=== PATIENT | male | born 1980 | race Caucasian/White ===

== ENCOUNTER 2016-10-02 09:52 | Emergency (ER) | payer OTHER ==
[~2016-10-02] VITALS: Ht 185.4 cm; Wt 81.6 kg
[~2016-10-02 09:52] MED LIST: ABILIFY 10 MG10 MG PO; ALPRAZOLAM0.5 M2 SL; AMITRIPTYLINE H10 M1 PO; CLONAZEPAM0.5 MG PO; DIVALPROEX SOD250 M1 PO; GABAPENTIN TAB600 MG PO; HYDROXYZINE50 MG PO; LEXAPRO20 M1 PO; NEURONTIN100 MG PO; PROTONIX 40MG T40 MG PO; PROTONIX INJ40 MG PO; RISPERIDONE1 MG PO; SEROQUEL 100MG100 MG PO; SERTRALINE HYD100 MG; SERTRALINE HYD100 MG PO; SERTRALINE HYDR50 MG PO; TRAZODONE100 MG PO
--- NOTE | 2016-10-02 10:53 | ED GI/GU/ABDOMINAL COMPLAINT ---
History of Present Illness General Chief Complaint: Nausea, Vomiting, Diarrhea Stated Complaint: N/V/D X 1 WEEK Source: patient, old records Exam Limitations: no limitations Vital Signs & Intake/Output Vital Signs & Intake/Output Vital Signs Date Time Temp Pulse Resp B/P Pulse O2 O2 Flow FiO2 Ox Delivery Rate 10/02 1250 98.7 75 18 119/70 97 10/02 1017 97.8 87 20 141/90 97 Room Air Room Air Allergies Coded Allergies: No Known Allergies (10/14/15) Reconcile Medications Aripiprazole (Abilify) 10 MG TAB 1 TAB PO DAILY DEPRESSION (Reported) Dicyclomine Hydrochloride (Bentyl) 10 MG CAPSULE 1 CAP PO TID PRN pain Escitalopram Oxalate (Lexapro) 20 MG TABLET 1 TAB PO DAILY DEPRESSION ( Reported) Gabapentin (Gabapentin Tab 600MG) 600 MG TAB 1 TAB PO TID UNKNOWN (Reported) Ondansetron (Zofran Odt) 4 MG TAB.RAPDIS 1 TAB SL TID PRN nausea Pantoprazole Sodium (Protonix) 40 MG TAB 1 TAB PO BID GI (Reported) Triage Note: PT TO ED WITH C/O NAUSEA, VOMITING AND DIARRHEA SINCE LAST SATURDAY. TOOK NO MEDS FOR SYMPTOMS. WENT TO WORK YESTERDAY AND TODAY, FELT WEAK. ABLE TO TAKE WATER, CLEAR FLUIDS. Triage Nurses Notes Reviewed? yes Onset: Abrupt Duration: day(s): (6), constant Timing: recent history Quality/Severity: aching, cramping Severity Numbers: 6 Location: generalized abdomen Radiation: no radiation Activities at Onset: nvd Prior Abdominal Problems: none Modifying Factors: Worsens With: eating. Associated Symptoms: denies HPI: 36-year-old male history of alcohol abuse and peptic ulcer disease presents emergency room complaining of a 6 day history of nausea vomiting diarrhea associated crampy generalized abdominal pain that is nonradiating that comes on during his episodes of vomiting and diarrhea. He reports that he had a sick contact at work with similar symptoms last week. He has not taken anything for his symptoms. The patient states that he did have a few beers the night before the symptoms began however is never been diagnosed with pancreatitis. He denies any chest pain shortness of breath fevers however reports the chills. He is been unable to tolerate by mouth secondary to his symptoms. No history of abdominal surgeries in the past 30 other associated symptoms or modifying factors pain is cramping and aching nonradiating (BRITTNEY BAEZ) Past History Travel History Traveled to [place] past 21 day No Medical History Any Pertinent Medical History? see below for history Neurological: NONE EENT: NONE Cardiovascular: NONE Respiratory: NONE Gastrointestinal: GERD, chronic diarrhea of unknown etiology Hepatic: NONE Renal: NONE Musculoskeletal: NONE Psychiatric: depression, SUICIDE ATTEMPT AT 19 Y/O, OVERDOSE Endocrine: NONE Blood Disorders: NONE Cancer(s): NONE History of MRSA: No History of VRE: No History of CDIFF: No Surgical History Surgical History: none Psychosocial History Who do you live with Patient/Self Services at Home None What is your primary language Croatian Tobacco Use: Current Not Daily Daily Tobacco Use Amount/Type: => 5 Cigarettes daily ETOH Use: alcoholic Illicit Drug Use: benzodiazepines, (OFF OF THEM NOW) Family History Family History, If Any: MOTHER (Secondary to alcohol). FH: liver cancer FATHER CKD (chronic kidney disease) GRANDFATHER FH: stomach cancer Hx Contributory? No (BRITTNEY BAEZ) Review of Systems Review of Systems Constitutional: Reports: see HPI. All Other Systems: Reviewed and Negative Comments Review of systems: See HPI, All other systems negative. Constitutional, no chills no fever, no malaise HEENT: No visual changes no sore throat no congestion, no ear pain Cardiovascular: No chest pain , no palpitation , Skin, no jaundice no rashes, no change in skin Respiratory: No dyspnea no cough no sputum no hemoptysis GI: see hpi : No dysuria No hematuria, no frequency Muscle skeletal: No joint pain, no joint swelling, no back pain, no neck pain Neurologic: No numbness no confusion, no headache Psych: No stress. Heme/endocrine: No bruising no bleeding Immunology: No lymphadenopathy (BRITTNEY BAEZ) Physical Exam Physical Exam General Appearance: well developed/nourished, no apparent distress, alert Gastrointestinal: normal bowel sounds, soft, non-tender Comments: Well-developed well-nourished person in no acute distress HEENT: Normal EENT exam; PERRL, EOMI, HEAD is atraumatic. moist mucous membranes. Neck: Supple,normal range of motion Back: Nontender, no CVA tenderness. Full range of motion Cardiovascular: Regular rate and rhythms no murmurs rubs Respiratory: Chest nontender.There were no bony deformities, no asymmetry. No respiratory distress. Patient speaking in full complete sentences. Breath sounds clear to auscultation bilaterally: NO W/R/R Abdomen: Soft, nontender nondistended, no appreciable organomegaly. Normal bowel sounds. No rebound/guarding, No appreciable enlargement of the abdominal aorta, No ascites. Extremity: No edema, full range of motion of extremities Neuro: Alert oriented x3, motor sensory normal, There were no obvious focal neurologic abnormalities. Skin: No appreciable rash on exposed skin, skin is warm and dry. no jaundice Psych: Mood and affect is normal, memory and judgment is normal. Core Measures ACS in differential dx? No Severe Sepsis Present: No Septic Shock Present: No (CIARAN BADILLO,BRITTNEY) Progress Differential Diagnosis: appendicitis, biliary colic, bowel obstruction, colon cancer, cholecystitis, diverticulitis, gastritis, hepatitis, inflamm bowel dis, pancreatitis, peptic ulcer, PUD/GERD, perforated viscous Plan of Care: Orders Procedure Date/time Status LIPASE 10/02 1053 Complete ETHANOL 10/02 1053 Complete COMPREHENSIVE METABOLIC PANEL 10/02 1053 Complete CBC WITHOUT DIFFERENTIAL 10/02 1053 Complete AMYLASE 10/02 1053 Complete Laboratory Tests 10/02/16 1135: Anion Gap 8, Estimated GFR > 60, BUN/Creatinine Ratio 20.0, Glucose 96, Calcium 8.4, Total Bilirubin 1.3, AST 35, ALT 48, Alkaline Phosphatase 83, Total Protein 6.3, Albumin 3.6, Globulin 2.7, Albumin/Globulin Ratio 1.3, Amylase < 30 L, Lipase 42, Serum Alcohol < 10.0 10/02/16 1106: CBC w Diff NO MAN DIFF REQ, RBC 5.39, MCV 93.8, MCH 32.4 H, RDW 14.1, MPV 8.8, Gran % 81.0 H, Lymphocytes % 13.5 L, Monocytes % 4.8, Eosinophils % 0.4, Basophils % 0.3, Absolute Granulocytes 7.1 H, Absolute Lymphocytes 1.2, Absolute Monocytes 0.4, Absolute Eosinophils 0, Absolute Basophils 0, PUBS MCHC 34.5 Labs ordered old records reviewed patient medicated Pepcid 20 Zofran 4 Toradol 30 IV CAT scan ordered 10/02/2016 12:48:21 PM pending CAT scan results are discussed the patient leaves off his lab results she's had no episodes of nausea vomiting or diarrhea here in the department resting comfortably I discussed with the patient at length his CAT scan findings again he is tolerating by mouth here, he's had no further episodes of nausea vomiting and discussed the need for bland diet clear liquids advance as tolerated, advised to return anytime sooner if his symptoms worsen prescription for Zofran and Bentyl provided answered all of his questions he feels comfortable this plan cleared for discharge (CIARAN BADILLO,BRITTNEY) Diagnostic Imaging: Viewed by Me: CT Scan. Discussed w/RAD: CT Scan. Radiology Impression: PATIENT: BRITTNEY BARR PRESENT AGE: 36 PATIENT ACCOUNT NO: [id number] : 81 LOCATION: [facility] ORDERING PHYSICIAN: BRITTNEY BADILLO SERVICE DATE: 10/02/16 EXAM TYPE: CAT - CT ABD & PELVIS W IV CONTRAST EXAMINATION: CT ABDOMEN AND PELVIS WITH CONTRAST CLINICAL INFORMATION: Abdominal pain. Nausea vomiting. Rule out appendicitis. COMPARISON: None TECHNIQUE: Multidetector volumetric imaging was performed of the abdomen and pelvis before and after the IV administration of 95 L of Omnipaque 300 intravenous contrast. Sagittal and coronal reformatted images were obtained on the technologist's workstation. DLP: 392.5 mGy-cm FINDINGS: LUNG BASES: The visualized lung bases are unremarkable. LIVER, GALLBLADDER, AND BILIARY TREE: The liver is normal in size, shape, and attenuation. No focal hepatic lesion or biliary ductal dilatation is present. The gallbladder is unremarkable with no evidence of radiopaque gallstones, gallbladder wall thickening, or obvious pericholecystic inflammatory changes. PANCREAS: Pancreas is normal in size and attenuation. No ductal dilatation or inflammatory changes. No pancreatic atrophy. SPLEEN: Unremarkable. ADRENAL GLANDS: Unremarkable. KIDNEYS AND URETERS: The kidneys are normal in size, shape, and attenuation. No hydronephrosis, hydroureter, or calculi seen. No perinephric stranding. BLADDER: Unremarkable. GASTROINTESTINAL TRACT: The small and large bowel are unremarkable. The appendix is unremarkable. ABDOMINAL WALL: No significant hernia is appreciated. LYMPH NODES: Normal. VASCULAR: Unremarkable. PELVIC VISCERA: The uterus and adnexa are unremarkable. OSSEOUS STRUCTURES: Unremarkable. IMPRESSION: No acute intra-abdominal or intrapelvic abnormalities. No CT findings of pancreatitis, though serum amylase and lipase values would be more sensitive for early/mild pancreatitis.. DICTATED BY: GUANACO ROSADO MD DATE/ TIME DICTATED:10/02/161243 SALES ASSISTANT:ARLINE DATE/TIME TRANSCRIBED: 10/02/161243 CONFIDENTIAL, DO NOT COPY WITHOUT APPROPRIATE AUTHORIZATION. < Electronically signed in Other Vendor System> SIGNED BY: GUANACO ROSADO MD 10/02/16 1301 Initial ED EKG: none (BRITTNEY BAEZ) Departure Departure Time of Disposition: 1310 Disposition: HOME OR SELF CARE Condition: Stable Clinical Impression Primary Impression: Nausea & vomiting Referrals: DAMARIS TOLEDO MD (PCP/Family) Additional Instructions: Johnston diet clear liquids advance as tolerated. Zofran if needed for nausea, Bentyl as needed for pain. Follow-up with your primary care physician this week return with any concerns These prescriptions were sent to your pharmacy Departure Forms: Customer Survey General Discharge Information Prescriptions: Current Visit Scripts Ondansetron (Zofran Odt) 1 TAB SL TID PRN nausea #10 TAB Dicyclomine Hydrochloride (Bentyl) 1 CAP PO TID PRN pain #15 CAP (BRITTNEY BAEZ) PA/BLACK TOP PAVER OPERATOR Co-Sign Statement Statement: ED Attending supervision documentation- [] I saw and evaluated the patient. I have also reviewed all the pertinent lab results and diagnostic results. I agree with the findings and the plan of care as documented in the PA's/BLACK TOP PAVER OPERATOR's documentation. [x] I have reviewed the ED Record and agree with the PA's/BLACK TOP PAVER OPERATOR's documentation. [] Additions or exceptions (if any) to the PAs/BLACK TOP PAVER OPERATOR's note and plan are summarized below: [] (KATRIN BARROW DO
[2016-10-02 11:14] LABS: ABSOLUTE BASOPHIL COUNT 0 /CUMM (0.0-0.2); ABSOLUTE EOSINOPHIL COUNT 0 /CUMM (0.0-0.7); ABSOLUTE GRANULOCYTE CT 7.1 /CUMM (1.4-6.5); ABSOLUTE LYMPH COUNT 1.2 /CUMM (1.2-3.4); ABSOLUTE MONOCYTE COUNT 0.4 /CUMM (0.10-0.60); BASOPHIL % 0.3 % (0.0-2.0); EOSINOPHIL % 0.4 % (0-5); HEMATOCRIT 50.5 % (42-52); MEAN CORPUSCULAR HGB 32.4 PG (27.0-31.0); MEAN CORPUSCULAR HGB CONC 34.5 G/DL (33.0-37.0); MEAN CORPUSCULAR VOLUME 93.8 FL (80.0-94.0); MEAN PLATELET VOLUME 8.8 FL (7.4-10.4); PLATELET COUNT 112 /CUMM (130-400); RBC DISTRIBUTION WIDTH 14.1 % (11.5-14.5); RED BLOOD CELL CT 5.39 /CUMM (4.70-6.10); WHITE BLOOD CELL COUNT 8.7 /CUMM (4.8-10.8)
[2016-10-02 12:50] VITALS: BP 119/70
--- NOTE | 2016-10-02 13:01 | CT SCAN REPORT ---
EXAMINATION: CT ABDOMEN AND PELVIS WITH CONTRAST CLINICAL INFORMATION: Abdominal pain. Nausea vomiting. Rule out appendicitis. COMPARISON: None TECHNIQUE: Multidetector volumetric imaging was performed of the abdomen and pelvis before and after the IV administration of 95 L of Omnipaque 300 intravenous contrast. Sagittal and coronal reformatted images were obtained on the technologist's workstation. DLP: 392.5 mGy-cm FINDINGS: LUNG BASES: The visualized lung bases are unremarkable. LIVER, GALLBLADDER, AND BILIARY TREE: The liver is normal in size, shape, and attenuation. No focal hepatic lesion or biliary ductal dilatation is present. The gallbladder is unremarkable with no evidence of radiopaque gallstones, gallbladder wall thickening, or obvious pericholecystic inflammatory changes. PANCREAS: Pancreas is normal in size and attenuation. No ductal dilatation or inflammatory changes. No pancreatic atrophy. SPLEEN: Unremarkable. ADRENAL GLANDS: Unremarkable. KIDNEYS AND URETERS: The kidneys are normal in size, shape, and attenuation. No hydronephrosis, hydroureter, or calculi seen. No perinephric stranding. BLADDER: Unremarkable. GASTROINTESTINAL TRACT: The small and large bowel are unremarkable. The appendix is unremarkable. ABDOMINAL WALL: No significant hernia is appreciated. LYMPH NODES: Normal. VASCULAR: Unremarkable. PELVIC VISCERA: The uterus and adnexa are unremarkable. OSSEOUS STRUCTURES: Unremarkable. IMPRESSION: No acute intra-abdominal or intrapelvic abnormalities. No CT findings of pancreatitis, though serum amylase and lipase values would be more sensitive for early/mild pancreatitis..
[2016-10-02] MEDS ORDERED: BENTYL10 M1 PO (13:11)
[2016-10-02] MEDS ORDERED: ZOFRAN ODT4 M1 SL (13:11)
== END 2016-10-02 13:18 ==
LOC: ERH 09:52
PROVIDERS: Physician Assistant Medical
DX: R11.2 Nausea with vomiting, unspecified (principal); R10.84 Generalized abdominal pain; R19.7 Diarrhea, unspecified
CPT/HCPCS: 74177; 96361; 96374; 96375; G0480; J1885; J2405

== ENCOUNTER 2016-10-03 12:22 | Inpatient (IN) | payer OTHER ==
[~2016-10-03] VITALS: Ht 180.3 cm; Wt 88.5 kg
[~2016-10-03 12:22] MED LIST changes: +BENTYL10 M1 PO; +ZOFRAN ODT4 M1 SL
--- NOTE | 2016-10-03 12:52 | ED PSYCHIATRIC COMPLAINT ---
See Addendum History of Present Illness General Chief Complaint: Psychiatric Related Complaint Stated Complaint: +SI, TOOK BOTTLE OF PILLS Source: patient, family, old records Exam Limitations: no limitations Vital Signs & Intake/Output Vital Signs & Intake/Output Vital Signs Date Time Temp Pulse Resp B/P Pulse O2 O2 Flow FiO2 Ox Delivery Rate 10/03 2234 98.4 80 20 130/84 10/03 2230 97.7 80 20 130/84 98 Room Air 10/03 2010 99.1 105 18 120/72 96 Room Air 10/03 1228 99.3 126 24 137/88 ED Intake and Output 10/04 0000 10/03 1200 Intake Total 120 Output Total Balance 120 Intake, Oral 120 Allergies Coded Allergies: No Known Allergies (10/14/15) Triage Note: PER PT TOOK ALL GABAPENTIN, 2 5 MG ANBIEN AND DRANK. 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 GABAPENTIN DATED 07/04/16 PT REPORTS FULL BOTTLE. SEEN IN ED YESTERDAY FOR ABD PAIN Triage Nurses Notes Reviewed? yes Onset: Just prior to arrival Duration: hour(s):, constant, continues in ED, getting worse Timing: recent history Severity: severe Associated Symptoms: anxiety, impaired concentration, ingestion, insomnia, suicidal ideation HPI: Several days prior to admission patient has had increasing depression and insomnia anorexia. He was seen yesterday for abdominal pain with negative workup. Prior to admission his depression became worse he took Ambien and reports a bottle of gabapentin to kill himself. He denies fever chills nausea vomiting diarrhea chest pain cough shortness of breath headache dysuria rash bleeding homicidal ideation hallucination. (MAVERICK MACHUCA,SEGUNDO) Reconcile Medications Dicyclomine Hydrochloride (Bentyl) 10 MG CAPSULE 1 CAP PO TID PRN pain Gabapentin (Gabapentin Tab 600MG) 600 MG TAB 1 TAB PO TID UNKNOWN (Reported) Ondansetron (Zofran Odt) 4 MG TAB.RAPDIS 1 TAB SL TID PRN nausea (FAINA MACHUCA,ANDRES) Past History Travel History Traveled to [place] past 21 day No Medical History Any Pertinent Medical History? 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 FH: liver cancer FATHER CKD (chronic kidney disease) GRANDFATHER FH: stomach cancer Hx Contributory? No (SEGUNDO TEMPLE MD) Review of Systems Review of Systems Constitutional: Reports: no symptoms. EENTM: Reports: no symptoms. Respiratory: Reports: no symptoms. Cardiovascular: Reports: no symptoms. GI: Reports: see HPI, abdominal pain. Genitourinary: Reports: no symptoms. Musculoskeletal: Reports: no symptoms. Skin: Reports: no symptoms. Neurological/Psychological: Reports: see HPI, confusion, depressed, emotional problems. Hematologic/Endocrine: Reports: no symptoms. Immunologic/Allergic: Reports: no symptoms. All Other Systems: Reviewed and Negative (SEGUNDO TEMPLE MD) Physical Exam Physical Exam General Appearance: well developed/nourished, alert, awake, anxious, moderate distress Head: atraumatic, normal appearance Eyes: Bilateral: normal appearance, PERRL, EOMI. 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 yes 1 Age <19 or >45 years? yes 1 Depression/Hopelessness? yes 2 Previous Attempts/Psych Care yes 1 Excessive Ethanol/Drug Use? yes 1 Rational Thinking Loss? yes 2 Single//? yes 1 Organized/Serious Attempt yes 2 Stated Future Intent? yes 2 Total 13 SAD PERSONS Done? yes (SEGUNDO TEMPLE MD) Progress Differential Diagnosis: drug intoxication, drug overdose, drug withdrawal, electrolyte abnormality, hypoglycemia Plan of Care: Orders Procedure Date/time Status Regular Diet 10/03 L Active CIWA 10/03 2058 Active Continuous Observation Monitor 10/03 124 Active URINE DRUG SCREEN FOR ER ONLY 10/03 124 Complete ACETOMINOPHEN 10/03 1244 Complete SALICYLATE 10/03 1244 Complete ETHANOL 10/03 1244 Complete COMPREHENSIVE METABOLIC PANEL 10/03 1244 Complete CBC WITHOUT DIFFERENTIAL 10/03 124 Complete ED CRISIS PSYCH CONSULT 10/03 1244 Active EKG 10/03 1229 Active Current Medications Sig/Adele Start time Last Medication Dose Stop Time Status Admin Charcoal 50 GM ONCE ONE 10/03 1400 CAN 10/03 1401 Laboratory Tests 10/03/16 1310: Urine Opiates Screen < 100.00, Methadone Screen < 40, Barbiturate Screen < 60, Ur Phencyclidine Scrn < 6.00, Amphetamines Screen < 100, U Benzodiazepines Scrn < 85, Urine Cocaine Screen < 50, Urine Cannabis Screen < 5.00 10/03/16 1300: Anion Gap 17 H, Estimated GFR > 60, BUN/Creatinine Ratio 10.0, Glucose 94, Calcium 9.6, Total Bilirubin 0.9, AST 42, ALT 59, Alkaline Phosphatase 94, Total Protein 8.1, Albumin 4.7, Globulin 3.4, Albumin/Globulin Ratio 1.4, CBC w Diff NO MAN DIFF REQ, RBC 5.84, MCV 94.4 H, MCH 32.0 H, RDW 14.0, MPV 8.9, Gran % 69.4, Lymphocytes % 23.3, Monocytes % 6.3, Eosinophils % 0.4, Basophils % 0.6, Absolute Granulocytes 6.5, Absolute Lymphocytes 2.2, Absolute Monocytes 0.6, Absolute Eosinophils 0, Absolute Basophils 0.1, PUBS MCHC 33.9, Salicylates < 1.0, Acetaminophen < 10.0 L, Serum Alcohol 183.0 3:20 PM Patient signed out to me by Dr. Temple, pending crisis evaluation and disposition. (FAINA MACHUCA,ANDRES) Hand-Off Endorsed To: ANDRES EISENBERG MD Endorsed Time: 1454 Pending: consult (SEGUNDO TEMPLE MD) Hand-Off Endorsed To: FARHEEN CUEVAS MD Endorsed Time: 2300 Pending: consult (CRISIS BED PLACEMENT) (FAINA MACHUCA,ANDRES) Hand-Off Endorsed To: MATEUSZ MACHUCA,KATRIN Loya Endorsed Time: 0700 Pending: consult (MASON MACHUCA,FARHEEN Land) Departure Departure Disposition: STILL A PATIENT Condition: Stable Clinical Impression Primary Impression: Depression with suicidal ideation Secondary Impressions: Overdose Referrals: DAMARIS TOLEDO MD (PCP/Family) Departure Forms: Customer Survey General Discharge Information (MAVERICK MACHUCA,SEGUNDO)
[2016-10-03 13:12] LABS: ABSOLUTE BASOPHIL COUNT 0.1 /CUMM (0.0-0.2); ABSOLUTE EOSINOPHIL COUNT 0 /CUMM (0.0-0.7); ABSOLUTE GRANULOCYTE CT 6.5 /CUMM (1.4-6.5); ABSOLUTE LYMPH COUNT 2.2 /CUMM (1.2-3.4); ABSOLUTE MONOCYTE COUNT 0.6 /CUMM (0.10-0.60); BASOPHIL % 0.6 % (0.0-2.0); EOSINOPHIL % 0.4 % (0-5); GRANULOCYTE % 69.4 % (42.2-75.2); HEMATOCRIT 55.1 % (42-52); MEAN CORPUSCULAR HGB CONC 33.9 G/DL (33.0-37.0); MEAN CORPUSCULAR VOLUME 94.4 FL (80.0-94.0); MEAN PLATELET VOLUME 8.9 FL (7.4-10.4); PLATELET COUNT 138 /CUMM (130-400); RED BLOOD CELL CT 5.84 /CUMM (4.70-6.10); WHITE BLOOD CELL COUNT 9.3 /CUMM (4.8-10.8)
--- NOTE | 2016-10-03 22:05 | ED PSYCH CRISIS CONSULTATION ---
Crisis Consult Basic Assessment Date of Consult: 10/03/16 Responsible Person/Accompanied By: self Insurance Authorization: Insurance #1: Insurance name: HAWA BORJA Phone number: Policy number: [id number] Group number: Authorization number: ED Provider: Patient's ED Provider: SEGUNDO TEMPLE MD Primary Care Physician: Patient's PCP: DAMARIS TOLEDO MD PCP's Current Psychiatrist: none Chief Complaint: Psychiatric Related Complaint Patient's Quote: I'm fed up with everything Present Illness: DELFINA self presented at [place] ED yesterday with reports of attempted suicide by swallowing a full bottle of Gabapentin and 2 5mg ambians in addition to etoh consumption. BAL at arrival was 186(?). He has a prior hx of suicide attempt by o/d with most recent inpatient at [facility] in Sep 2015 and prior inpatient at [facility] (most recent Aug 2015) and multiple prior inpatient admissions at [facility]. He has a hx of outpatient tx at [facility] and most recently [facility]. He reports stopping tx and med management at [facility] Jul 2016. He reports increased depression and feeling hopeless due to daily ETOH abuse -10 nips plus beer nightly. He reports being overwhelmed with stress because despite working he has been unable to keep up on his bills and hasnt been able to pay his mortgage the past 7 months. He reports living alone (he is ) and doesnt do anything other than work and come home and drink by himself until he goes to bed. He reports missing work recently due to illness and that his work performance has deteriorated due to alcohol use. He continues to endorse SI. He reports giving up and stated Its not worth trying anymore. He presents as depressed, hopeless, defeated. Reports poor appetite losing 30 lbs past yr. Patient's Address: [address] [place] [address] Other Phone Number: Who Do You Live With? Patient/Self Family/Informants Interviewed: Call to Go James pt's cousin. He informed that pt does struggle with Depression and has been admitted to in psych a few times in the past. He reports that he has been increasingly deperssed lately because it was recelty his grandmother's birthday and she recently and they were close. Allergies - Coded Allergies: No Known Allergies (10/14/15) Current Medications - Scheduled Medications Gabapentin (Gabapentin Tab 600MG) 600 MG TAB 1 TAB PO TID UNKNOWN #45 ( Reported) Entered as Reported by KADE WHATLEY on 10/06/15 0800 Scheduled PRN Medications Dicyclomine Hydrochloride (Bentyl) 10 MG CAPSULE 1 CAP PO TID PRN pain #15 CAP Prescribed by BRITTNEY BAEZ on 10/02/16 Ondansetron (Zofran Odt) 4 MG TAB.RAPDIS 1 TAB SL TID PRN nausea #10 TAB Prescribed by BRITTNEY BAEZ on 10/02/16 Laboratory Results: Laboratory Tests 10/03/16 1310: Urine Opiates Screen < 100.00, Methadone Screen < 40, Barbiturate Screen < 60, Ur Phencyclidine Scrn < 6.00, Amphetamines Screen < 100, U Benzodiazepines Scrn < 85, Urine Cocaine Screen < 50, Urine Cannabis Screen < 5.00 10/03/16 1300: Anion Gap 17 H, Estimated GFR > 60, BUN/Creatinine Ratio 10.0, Glucose 94, Calcium 9.6, Total Bilirubin 0.9, AST 42, ALT 59, Alkaline Phosphatase 94, Total Protein 8.1, Albumin 4.7, Globulin 3.4, Albumin/Globulin Ratio 1.4, CBC w Diff NO MAN DIFF REQ, RBC 5.84, MCV 94.4 H, MCH 32.0 H, RDW 14.0, MPV 8.9, Gran % 69.4, Lymphocytes % 23.3, Monocytes % 6.3, Eosinophils % 0.4, Basophils % 0.6, Absolute Granulocytes 6.5, Absolute Lymphocytes 2.2, Absolute Monocytes 0.6, Absolute Eosinophils 0, Absolute Basophils 0.1, PUBS MCHC 33.9, Salicylates < 1.0, Acetaminophen < 10.0 L, Serum Alcohol 183.0 (ALYSIA DAVIS LCSW) Past History Past Medical History Neurological: NONE EENT: NONE Cardiovascular: NONE Respiratory: NONE Gastrointestinal: GERD, ESPOGEAL ULCERS chronic diarrhea of unknown etiology Hepatic: NONE Renal: NONE Musculoskeletal: NONE Psychiatric: depression, SUICIDE ATTEMPT AT 19 Y/O, OVERDOSE Endocrine: NONE Blood Disorders: NONE Cancer(s): NONE RNFA/Reproductive: NONE Past Surgical History Surgical History: 1 Psychosocial History Strengths/Capabilities: Employed/own home Supportive family Desire to feel better Physical Limitations (Interventions): None identified Psychiatric Treatment History Psych Treatment Psychiatric Treatment Yes Inpatient Treatment Yes Out[facility] for Treatment Depression/ETOH Abuse Dates of Treatment since 2014 Response to Treatment continued depression and etoh abuse Diagnosis by History: Depression, Anxiety and Alcohol Use Substance Use/Abuse History Drug Use/Abuse Substances Used/Abused Yes Substance Used/Abused Alcohol Last Used today How much used/taken 10 nips plus beer How often daily Substance Abuse Treatment Substance Abuse Treatment Past Substance Abuse TX Yes Inpatient Treatment Yes Outpatient Treatment Yes Location of Treatment [facility] Reason for Treatment Alcohol and Benzo Detox Response to Treatment stayed clean from benzos. continues daily etoh abuse Comments: pt drinking etoh daily. reports continuing to abstain from benzo and cocaine (ALYSIA DAVIS LCSW) Current Mental Status Mental Status Orientation: Person, Place, Situation Affect: Depressed Speech: WNL Neuro-vegetative: Anhedonia, Appetite Decreased, Energy Decreased, Helpless, Loss of Interest Appearance Appearance- Dress/Hygiene: hospital scrubs; groomed dietz; tatoos on both arms Behaviors Thought Process: WNL Thought Content: WNL Memory: WNL Insight: Fair SI/HI Risk Assessment Past Suicidal Ideation/Attempts Yes Current Suicidal Ideation/Att Yes Past Homicidal Ideation/Att: No Current Homicidal Ideation/Attempts No Degree of Intent: States Intent Danger To: Self Gravely Disabled: Poor Impulse Control, Poor Judgment Risk Factors: high anxiety/distress, history of suicide atmpts, SA/MH hospitalized, substance abuse, isolate/no social support, lives alone, male Lethality Ratin ED Management Sitter: Yes Restraints: No (ALYSIA DAVIS LCSW) DSM5/PS Stressors/Medical Prob Diagnosis' (DSM 5, Stressors, Medical): Major Depressive D/O recurrent (F33.2) Alcohol Use severe (F10.20) financial mortgage recent illness chronic GI problems Current GAF: 25 Comments: pt rports stopped taking medications and stopped tx at [facility] in July. Increased depression/stress regarding inability to pay mortgage/bills and maintain consistent work performance. feels he is letting self and family down. (ALYSIA DAVIS LCSW) Departure Disposition Psych Medical Clearance Date: 10/03/16 Medically Cleared at: 2000 Time Started: 2004 Time Ended: 2044 Psychiatrist Consulted: Keshawn Purcell MD Date Disposition Established: 10/03/16 Time Disposition Established: 2099 Plan for Disposition - Modality: Bed Search Rationale for Disposition: Pt depressed. Suicidal. Attempted O/d today. Needs inpatient admission. Referrals TRE MACHUCA,DAMARIS (PCP/Family) (ALYSIA DAVIS LCSW) Disposition Psych Medical Clearance Date: 10/04/16 Date Disposition Established: 10/04/16 Time Disposition Established: 2009 Plan for Disposition - Modality: Inpatient Psychiatry Facility: [facility] Follow-up Appt Date: 10/04/16 Rationale for Disposition: +SI, increased depression, alcohol dependence Type of IP Admission: Voluntary (GIORGI SPAULDING LCSW) Addendum Addendum Crisis re-evaluated pt today. He remains depressed with suicidal thoughts. Case reviewed with Dr. Cormier of Psychiatry and bed search continues. (ASHLI BOTELLO LCSW) Addendum Patient to be admitted to [facility] this evening. Patient signed voluntary form and is willing to go to [facility]. (GIORGI SPAULDING LCSW)
[2016-10-03 22:35] VITALS: BP 130/84
[2016-10-04 08:52] VITALS: BP 130/70
--- NOTE | 2016-10-04 12:12 | ED PSYCHIATRIST/APRN CONSULT ---
Psychiatrist/SINGER BACK TENDER ED Consult Assessment and Plan: Patient seen at 11:37 a.m. Here after intentional overdose with #2 Ambien and # 90 Neurontin. Needs inpatient psychiatric care. Full note to follow. I have ordered an alcohol detox protocol.
[2016-10-04 16:50] LABS: ABSOLUTE BASOPHIL COUNT 0 /CUMM (0.0-0.2); ABSOLUTE EOSINOPHIL COUNT 0.1 /CUMM (0.0-0.7); ABSOLUTE GRANULOCYTE CT 4.8 /CUMM (1.4-6.5); ABSOLUTE LYMPH COUNT 2.1 /CUMM (1.2-3.4); ABSOLUTE MONOCYTE COUNT 0.5 /CUMM (0.10-0.60); BASOPHIL % 0.5 % (0.0-2.0); EOSINOPHIL % 1.7 % (0-5); GRANULOCYTE % 63.6 % (42.2-75.2); HEMATOCRIT 51.3 % (42-52); MEAN CORPUSCULAR HGB 31.9 PG (27.0-31.0); MEAN CORPUSCULAR HGB CONC 33.7 G/DL (33.0-37.0); MEAN CORPUSCULAR VOLUME 94.5 FL (80.0-94.0); MEAN PLATELET VOLUME 8.9 FL (7.4-10.4); PLATELET COUNT 127 /CUMM (130-400); RBC DISTRIBUTION WIDTH 13.7 % (11.5-14.5); RED BLOOD CELL CT 5.43 /CUMM (4.70-6.10); WHITE BLOOD CELL COUNT 7.6 /CUMM (4.8-10.8)
--- NOTE | 2016-10-04 19:42 | ED PSYCHIATRIST/APRN CONSULT ---
Psychiatrist/DELIVERY AGENT ED Consult Assessment and Plan: dining service worker's note reviewed. Patient seen at 11:37 a.m. The patient is a 36 yo DWM who presented s/p intentional overdose with #2 Ambien 5 or 10 mg tabs and #90 Neurontin 300 mg in the context of drinking "a lot of whiskey," 500 ml. States that he texted a female friend to take care of his dog "in case [he didn' t] make it." This raised her suspicions, which led to her bringing him to the emergency room. Reports stressors as having been out of work for a while due to a drinking binge. States "my whole life is a mess. 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 States that he has been depressed for 20 years. Past psychiatric hx: Stopped going to [facility] about 2 months ago. Reports he was inpatient on [facility] last year. Stopped medications in 08/03 because he couldn't focus at work. Reports this was his second suicide attempt. The first was in 2014 whe he took a pill overdose with alcohol. Substance abuse hx: Tobacco at 1 ppd. Alcohol 500 ml (10 nips) of whiskey + 2 beer/day. Denies cannabis. Was using cocaine daily until ~6 weeks ago, then decreased use to 1x/ weekend. Denies opiates. Rx: melatonin 10 mg qhs prn, Bentyl, Zofran for nausea. Past tx with Lexapro, Abilify, gabapentin. Found gabapentin helpful for anxiety. NKA. PMH: Hx esophagitis/esophageal ulcers. Tonsillectomy in childhood. Hx left hand surgery and right ankle sprain. Family psychiatric and substance abuse hx: Mother, depression, on Lexapro. MGF depression. Substance use: "everybody." MGF attempted suicide. Social hx: Lives alone in [place]. Parents are in [place]. Has a brother in [place] and a sister in [place]. Has a son, age 8, who lives with his mother in [place]. Sees son on occasion. HS graduate. 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 Had a couple of DUIs in his 20s. Mental status examination: WM in blue scrubs, bearded, lying in bed. Calm, polite and cooperative. No psychomotor agitation/retardation. Speech normal in volume, rate and tone. Affect calm, good range. Mood: "a little better" since receiving Bentyl and Ativan. Sad 04/28. Anxiety 12/26. Feels hopeless, helpless, worthless and guilty. Reports SI+racing thoughts. Gives a safety promise for here. Reports HI (jokingly) toward a female peer in the ER who talks incessantly. Denies actual HI. Denies AH, VH, PI and magical reyna. There is no apparent thought d/o or delusions. Insight and judgment are poor. Ox3. Reports he got hardly any sleep last night. Sleep at home was disrupted due to alcohol use. Appetite : not good lately, for the past few months. He reports he lost a lot of weight, unquantified. Energy: "pretty low." IMPRESSION: Major depression, recurrent, severe. Alcohol use disorder. Patient is here after an intentional overdose. He will need inpatient psychiatric care. I have ordered an alcohol detox protocol.
--- NOTE | 2016-10-04 19:52 | IP CRISIS DIAG ASSESS PSYCH ---
Diagnostic Assessment Basic Assessment Insurance Authorization: Insurance #1: Insurance name: HAWA BORJA Phone number: Policy number: [id number] Group number: Authorization number: Pended Authorization # Client Authorization # Type of Request [id number] INITIAL Date of Admission/ Start of Services Requested From Submission Date 10/04/2016 10/04/2016 10/04/2016 Primary Care Physician: Patient's PCP: DAMARIS TOLEDO MD PCP's Patient's Quote: I'm fed up with everything Present Illness: Re Connor Weiss, RESIDENTIAL HOUSEKEEPER on 10/03/16: DELFINA self presented at [place] ED yesterday with reports of attempted suicide by swallowing a full bottle of Gabapentin and 2 5mg ambians in addition to etoh consumption. BAL at arrival was 186(?). He has a prior hx of suicide attempt by o/d with most recent inpatient at [facility] in Sep 2015 and prior inpatient at [facility] (most recent Aug 2015) and multiple prior inpatient admissions at [facility]. He has a hx of outpatient tx at [facility], [place] and most recently [facility]. He reports stopping tx and med management at [facility] Jul 2016. He reports increased depression and feeling hopeless due to daily ETOH abuse -10 nips plus beer nightly. He reports being overwhelmed with stress because despite working he has been unable to keep up on his bills and hasnt been able to pay his mortgage the past 7 months. He reports living alone (he is ) and doesnt do anything other than work and come home and drink by himself until he goes to bed. He reports missing work recently due to illness and that his work performance has deteriorated due to alcohol use. He continues to endorse SI. He reports giving up and stated Its not worth trying anymore. He presents as depressed, hopeless, defeated. Reports poor appetite losing 30 lbs past yr. Patient's Address: [address] [place] [address] Other Phone Number: Who Do You Live With? Patient/Self Feel Safe Where You Live? Yes Feel Safe in Your Relationship Yes Marital Status: single Do You Have Children? No Primary Language? Israeli Language(s) Spoken At Home: Israeli Family/Informants Interviewed: Call to Go James pt's cousin. He informed that pt does struggle with Depression and has been admitted to in psych a few times in the past. He reports that he has been increasingly deperssed lately because it was recelty his grandmother's birthday and she recently and they were close. Allergies - Coded Allergies: No Known Allergies (10/14/15) Current Medications - Scheduled Medications Gabapentin (Gabapentin Tab 600MG) 600 MG TAB 1 TAB PO TID UNKNOWN #45 ( Reported) Entered as Reported by KADE WHATLEY on 10/06/15 0800 Scheduled PRN Medications Dicyclomine Hydrochloride (Bentyl) 10 MG CAPSULE 1 CAP PO TID PRN pain #15 CAP Prescribed by BRITTNEY BAEZ on 10/02/16 Ondansetron (Zofran Odt) 4 MG TAB.RAPDIS 1 TAB SL TID PRN nausea #10 TAB Prescribed by BRITTNEY BAEZ on 10/02/16 Past History Past Surgical History Surgical History TONSILS,L HAND Abuse/Trauma History Trauma History/Current Trauma: Denies History of Trauma/Abuse Treatment? No Legal History Current Legal Status: none Have you ever been arrested? Yes Number of Arrests: [address] Dates: none Fitness Director none Psychosocial History Strengths/Capabilities: Employed/own home Supportive family Desire to feel better Physical Limitations (Interventions): None identified Psychiatric Treatment History Psych Treatment Psychiatric Treatment Yes Inpatient Treatment Yes Outpatient Treatment Yes Location of Treatment [facility], [facility] Reason for Treatment Depression/ETOH Abuse Dates of Treatment since 2014 Response to Treatment continued depression and etoh abuse Diagnosis by History: Depression, Anxiety and Alcohol Use Risk Factors: high anxiety/distress, history of suicide atmpts, SA/MH hospitalized, substance abuse, isolate/no social support, lives alone, male Substance Use/Abuse History Drug Use/Abuse minimum 12mo Hx Substances Used/Abused Yes Substance Used/Abused Alcohol Last Used today How much used/taken 10 nips plus beer How often daily Substance Abuse Treatment Substance Abuse Treatment Past Substance Abuse TX Yes Inpatient Treatment Yes Outpatient Treatment Yes Location of Treatment [facility] Reason for Treatment Alcohol and Benzo Detox Response to Treatment stayed clean from benzos. continues daily etoh abuse Sexual History Sexually Active Yes Sexual Orientation Heterosexual Education History Highest Level of Education: high school/GED Preferred Learning Style: visual, auditory, experiential Current Mental Status Mental Status Orientation: Person, Place, Situation Affect: Depressed Speech: WNL Neuro-vegetative: Anhedonia, Appetite Decreased, Energy Decreased, Helpless, Loss of Interest Appearance Appearance- Dress/Hygiene: hospital scrubs; groomed dietz; tatoos on both arms Behaviors Thought Process: WNL Thought Content: WNL Memory: WNL Insight: Fair SI/HI Risk Assessment - Minimum 6mo History- Past Suicidal Ideation/Attempts Yes Current Suicidal Ideation/Att Yes Past Homicidal Ideation/Att: No Current Homicidal Ideation/Attempts No Degree of Intent: States Intent Danger To: Self Gravely Disabled: Poor Impulse Control, Poor Judgment Risk Factors: high anxiety/distress, history of suicide atmpts, SA/MH hospitalized, substance abuse, isolate/no social support, lives alone, male Lethality Ratin Needs/Init TX Plan/Goals: 1) Monitor for safety 2) Develop coping skills 3) Med management 4) Arrange family meeting while in hospital AUDIT-C Questionnaire: AUDIT-C Questionnaire: Response Value ETOH use in the past year 4 or more per week 4 # drinks typical/day 10 or more 4 6 or > drinks per occasion Daily/Almost Daily 4 Total 12 DSM5/PS Stressors/Medical Prob Diagnosis' (DSM 5, Stressors, Medical): Major Depressive D/O recurrent (F33.2) Alcohol Use severe (F10.20) financial mortgage recent illness chronic GI problems Current GAF: 25 Comments: pt rports stopped taking medications and stopped tx at [facility] in July. Increased depression/stress regarding inability to pay mortgage/bills and maintain consistent work performance. feels he is letting self and family down.
--- NOTE | 2016-10-04 20:34 | SOCIAL WORKER SOCIAL HX PSYCH ---
Social History Basic Assessment Insurance Authorization: Insurance #1: Insurance name: [employer] Phone number: Policy number: [id number] Group number: Authorization number: Curr Source of Income/Entitlements: employment Primary Care Physician: Patient's PCP: DAMARIS TOLEDO MD PCP's Present Problem: The patient is a 36 year old, male presenting to the ED, after an intentional overdose on Gabapentin and Ambien, with the intention to take his life. The patient presents with depressed mood with flat affect and had good participation in the evaluation. He reports his symptoms as follows; depressed mood, anxiety, feeling helpless, feeling hopeless, with sleep and appetite disturbances. He reports that this is his second suicide attempt and that previously he was admitted to [facility]. He is not currently in any outpatient treatment, for his substance abuse or mental health issues. He has been drinking daily and has been using Cocaine on the weekends. He states that "realistically," he does not want to stop drinking at this time. His last period of sobriety was 1 year ago. 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 He states that he has multiple stressors and has not been able to catch up with finances, since being laid off from his last job (1 year ago). He has one son (8 years old), who resides with his mother in [place], noting he occasionally sees him. He is not currently in a relationship with anyone, however is attracted to females and is currently sexually active. He denies any current or history of HI / AH / VH. He denies any history of trauma or abuse. He would like to be admitted to an inpatient unit at this time. Primary Language? Russian Language(s) Spoken At Home: Russian Living Situation Other Living Arrangement: Live in his own home Residential Care/Treatment Fac N/A Feel Safe Where You Are Living Yes Feel Safe in Relationships? No (Denies being in a relationship) Comments: N/A Allergies - Coded Allergies: No Known Allergies (10/14/15) Current Medications - Scheduled Medications Gabapentin (Gabapentin Tab 600MG) 600 MG TAB 1 TAB PO TID UNKNOWN #45 ( Reported) Entered as Reported by KADE WHATLEY on 10/06/15 0800 Scheduled PRN Medications Dicyclomine Hydrochloride (Bentyl) 10 MG CAPSULE 1 CAP PO TID PRN pain #15 CAP Prescribed by BRITTNEY BAEZ on 10/02/16 Ondansetron (Zofran Odt) 4 MG TAB.RAPDIS 1 TAB SL TID PRN nausea #10 TAB Prescribed by BRITTNEY BAEZ on 10/02/16 Consequences of Psych Med Use: N/A Comments: N/A Past History Past Medical History Neurological: NONE EENT: NONE Cardiovascular: NONE Respiratory: NONE Gastrointestinal: GERD, ESPOGEAL ULCERS chronic diarrhea of unknown etiology Hepatic: NONE Renal: NONE Musculoskeletal: NONE Psychiatric: depression, SUICIDE ATTEMPT AT 19 Y/O, OVERDOSE Endocrine: NONE Blood Disorders: NONE Cancer(s): NONE 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 Childhood Family Constellation: Father, mother, 1 brother and 1 sister Primary Childhood Caretakers: father, mother Family Life During Childhood: "it was good, I had a normal childhood." DCF Involvement? No Mother's Age (Current/): 62 Relationship w/Mother: "Good" Father's Age (Current/): 61 Relationship w/Father: "good" Any Sibling(s)? Yes Sibling's Gender(s)/Age(s): male Sibling 1:, female Sibling 2: Relationship w/Sibling(s): "very good, but they are spread across the [facility]." he states that his brother lives in [place] and his sister lives in [place]. Relationship w/Friends: "Good, but they are drinking buddies." Family Psych/Sub Abuse/Add Hx: Unknown Other Comments: N/A Abuse/Trauma History Trauma History/Current Trauma: Denies Abuse/Trauma Treatment: N/A Legal History Legal Guardian/Address/Phone: Self Current Legal Status: none Pending Court Dates: Patient denies Have you ever been arrested Yes Number of Arrests: 3 Hx of Juvenile Legal Charges? Yes If Yes: Arrested for Marijuana Hx of Adult Legal Charges? 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 Weaknesses: The patient has chronic substance abuse issues and has had very little sobriety. Physical Limitations (Interventions): None identified Last Physical: uknown History of Seizures? No History of Blackouts? Yes Last Blackout: "Last " ADL Limitations: None noted [place]/Social/Peer Relations The patient states that he does have some friends, however states "most of them are drinking buddies." Meaningful Activities: The patient states that he likes Hiking, fishing and mountain biking. Childhood Gnosticism: no anabaptism stated Current Yazdanism Affiliation: no anabaptism stated Is Spirituality Important to You? "No" Cultural/Ethnic Issues: None noted Are There Developmental Issues? 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 Treatment of Prior Episodes: The patient states that he was admitted to [facility] Diagnosis: By hx: Depression, Anxiety and Alcohol Use Psychodynamic Issues: N/A Risk Factors: high anxiety/distress, history of suicide atmpts, SA/MH hospitalized, substance abuse, isolate/no social support, lives alone, male Substance Use/Abuse History Drug Use/Abuse 1 Substance Used/Abused Alcohol First Use 14 years old Last Used yesterday: 10/03/2016 How much used/taken 4-5 nips and a couple of beers, however notes an increase lately How often "Daily" For how long 1 year Route of use oral Drug Use/Abuse 2 Substance Used/Abused Cocaine First Use 16 years old Last Used "Last weekend" How much used/taken "1 gram" How often "every weekend" For how long unclear Route of use unknown Have Had Periods of Sobriety? No Explain: The patient reports very little sobriety, noting he has not been sober for at least the last year. He did note being sober for 1 month about a year ago. Relapse History? Yes Explain: The patient notes that he does not want to stop drinking. Have You Ever Attended AA? Yes Do You Attend AA Currently? No Do You Have a Sponsor? No Other Community Resources Used: None noted Symptoms of Use: N/A Substance Abuse Treatment Substance Abuse Treatment Inpatient Treatment Yes Outpatient Treatment Yes Location of Treatment [facility] Reason for Treatment Alcohol and Benzo Detox Response to Treatment The patient continues to drink daily Comments: N/A Sexual History Sexually Active Yes Sexual Orientation Heterosexual Sexual Concerns: None noted Education History Highest Level of Education: high school/GED Highest Grade Completed: 12 grade Vocational Year Completed: N/A Number of College Years: 0 College Degree/Major: N/A Other Degree(s): N/A Preferred Learning Style: ukkameronwn HX of Learning Difficulties: None reported Barriers to Learning: None reported Special Communication Needs: None reported Employment History Employment Employed Not in Labor Force: N/A 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 No If Yes, Explain: N/A Type of Discharge: N/A Date of Discharge: N/A Current Mental Status Mental Status Orientation: Person, Place, Situation Affect: Depressed Speech: WNL Neuro-vegetative: Anhedonia, Appetite Decreased, Energy Decreased, Helpless, Loss of Interest, Feeling hopeless Appearance Appearance- Dress/Hygiene: The patient was sitting on the bed, in hospital attier and was neat clean well kempt. He had visible tattoos on both of his arms. He had good eye contact and participation in the evaluation. Behaviors Thought Process: WNL Thought Content: WNL Memory: WNL Insight: Fair SI/HI Risk Assessment Past Suicidal Ideation/Attempts Yes (2 attempts) Current Suicidal Ideation/Att Yes (" I don't know how I feel") Past Homicidal Ideation/Att: No Current Homicidal Ideation/Attempts No Degree of Intent: States Intent, The patient presented to the ED after an intentional overdose of Gabapentin and Ambien, in a suicide attempt. Danger To: Self Gravely Disabled: Poor Impulse Control, Poor Judgment Risk Factors: High Anxiety/Distress, SA/MH Hospitalization(s), Hx of suicide attempt(s), Lives alone, Male, Poor impulse control, Substance Abuse Lethality Ratin - Conclusion and Recommendations for treatment - and discharge planning Summary: The patient presented to the ED after a suicide attempt, in which he took an overdose of pills while drinking alcohol. He reports feeling depressed, anxious, feeling helpless, feeling hopeless and has had sleep and appetite disturbances. He would like help with his mental health issues, however does not want to stop driking at this time.
[2016-10-04] MEDS ORDERED: MELATONIN10 M4 PO (20:58)
[2016-10-04] MEDS ORDERED: NEURONTIN600 M1 PO (20:59)
[2016-10-04] MEDS ORDERED: LEXAPRO20 M1 PO (21:00)
[2016-10-04] MEDS ORDERED: ABILIFY10 M1 PO (21:00)
[2016-10-05] VITALS (13 sets, daily range): BP systolic 107–140; BP diastolic 66–89
--- NOTE | 2016-10-05 14:42 | SOCIAL WORKER PROG NOTE PSYCH ---
Social Work Progress Note Progress Note SW met with patient for the first time today since admission to the unit. Patient reports +SI today with no plan or intent while in the hospital. Patient reports that he would rather be than alive and has no will to live at present. Patient reports that at this time he is unsure if he wants to abstain from alcohol although knows that he should. Patient reports that when he is under the influence he acts impulsively and recklessly. Patient reports that he is depresed over his drinking but also drinks because of his depression. Patient is fearful that he may lose his current job. Patients uncle is his boss and he is considering inviting his uncle in for a family meeting. His uncle is aware that he is here but patient believes his uncle is more concerned with him returning to work and filling his schedule. It may be beneficial to have uncle come in for family meeting in order to educate him on patients mental illness/ severity of his suicide attempt/ alcohol dependence. Patients parents reside in [place] and patient reports that last time he was at they were "way too involved". It does not appear he wants them involved in his treatment this time. I mentioned the possibility of seeking rehab post discharge from the hospital and patiend reported that he does not want to go to rehab. Patient is hesitant right now about aftercare plan and stated that he is fearful of discharging the hospital.
--- NOTE | 2016-10-05 14:44 | SOCIAL WORKER TX PLAN PSYCH ---
Treatment Plan - Please Document: - Evidence that there is ongoing collaboration between - the patient and the interdisciplinary team, - including the patient's active participation and - responsibility for engaging in the treatment regimen, - and that the treatment plan is individualized and - relevant to the patient's conditions. - Treatment plan should reflect documentation indicating - that all active therapeutic efforts are included. Strengths/Capabilities: The patient has good insight into his need for treatment and is motivated to attend. Physical Limitations (Interventions): None identified Patient Identified Trmt Goals: " I want to be less depressed and do better." Discharge Plan: IOP Problem/Goals #1 Problem #1: suicidal ideation Goal (Short Term): Today I will attend 2 groups Today I will identify 2 stressors Today I will identify 2 positive supports Today I will work on recognizing 3 emotions I am feeling Goal (Intermediate): Be free of suicidal thoughts/attempts Develop 3 coping skills to deal with depression Identify 3 positive support systems to call in crisis Develop a crisis plan with 3 miller people Identify 2 positive traits per week about myself Identify 2 things I have to look forward to Identify 2 positive people in my life and 1 thing I appreciate about them Interventions: Learn ways to manage depressive symptoms accordingly and identify positive supports to manage life stressors and mood fluctuations. Modalities: Encourage groups, education on depression, provide CBT treatment, family meeting. Problem/Goals #2 Problem #2: alcohol dependence/abuse Goal (Short Term): 1) Refrain from alcohol use 2) Identify 3 triggers for use 3) Identify 3 sober supports 4) Identify 3 coping skills Goal (Intermediate): I will have family meeting on unit during my hospitalization I will attend all AA groups on unit I will arrange aftercare for discharge I will Identify 3 coping skills for cravings to use I will attend all AA meetings on the unit I will set up aftercare for dual diagnosis program to address both mental health and substance abuse concerns Interventions: Learn ways to manage cravings to use substances accordingly and identify coping skills to prevent relapse from occurring due to anxious/depressed feelings. Modalities: Encourage groups, education on addiction, provide CBT treatment, family meeting. DSM5/PS Stressors/Medical Prob Diagnosis' (DSM 5, Stressors, Medical): Major Depressive D/O recurrent (F33.2) Alcohol Use severe (F10.20) financial mortgage recent illness chronic GI problems Current GAF: 25 Treatment Team - Responsibilities of members of the treatment team include: - Medication Management- or [facility] SOCIAL WORKER - Medication Administration and Monitoring- Nurse - Group Therapy- Occupational Therapist - 1:1 Therapy,Disch Planning,family involvement-Electrician Outside
--- NOTE | 2016-10-05 16:22 | CPS MD/APRN INITIAL ASSE PSYCH ---
Psychiatric Admission Manager Motor's Note Reviewed: Yes Patient Seen and Examined: Yes Identifying Information: 36-year-old white male Chief Complaint: "I tried to kill myself. It was impulsive. I had racing thoughts of suicide which haven't gone away. Reaction to Hospitalization: Calm and cooperative History of Present Illness Onset of Illness: As a teenager, 17 or 18 years old. Circumstances Leading to Admission: Presented to the ER after an intentional overdose with 2 tablets of Ambien and 90 tablets of Neurontin 300 mg and "a lot of whiskey." Problem(s) Justifying Need for Admission: Suicidal ideation. Past Psychiatric History Past Diagnosis(es)- if any: Major depression, recurrent, severe. Alcohol use disorder. Past Precipitating Factors- if any: Alcohol abuse - Include inpatient and outpatient treatment Treatment History: [facility] up to approximately 2 months ago. [place] inpatient August 2015. As per history, was at [facility] September 2015. History of Suicide Attempts or Gestures Reports that this was his third suicidal attempt, the first was when he was 19 years old, the second in 2014 when he took an overdose of pills and alcohol. Substance Abuse History: Alcohol abuse History of polysubstance abuse, LSD, smoking heroin, PCP, cocaine, crystal meth, mushrooms. Allergies: Coded Allergies: No Known Allergies (10/14/15) Home Med List: Melatonin 10 mg at bedtime Bentyl Zofran Lexapro, Abilify gabapentin from [facility] up until July 2016. - Include any medical condition(s) that may - impact the patient's recovery/remission Past History Medical History Neurological: NONE EENT: NONE Cardiovascular: NONE Respiratory: NONE Gastrointestinal: GERD, ESPOGEAL ULCERS chronic diarrhea of unknown etiology Hepatic: NONE Renal: NONE Musculoskeletal: NONE Psychiatric: depression, SUICIDE ATTEMPT AT 19 Y/O, OVERDOSE Endocrine: NONE Blood Disorders: NONE Cancer(s): NONE SUPERVISOR OF WAY/Reproductive: NONE History of MRSA: No History of VRE: No History of CDIFF: No Isolation History: Standard Surgical History Surgical History: TONSILS,L HAND Psychiatric Family/Social Hx Family History Psychiatric Illness: Mother depression on Lexapro Maternal grandfather depression Substance Use: "Everybody." Suicides: Maternal grandfather attempted suicide Social History Living Situation: Patient lives on his own in [place]. Significant Relationships (family/friends): Parents live in [place]. Brother lives in [place], sister in [place]. He has an 8-year-old son who lives with his mother in [place]. Patient has a working relationship with these people, however not a close relationship. Does not see his 8-year-old son often. 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 No other criminal violations. Some past due bill collections. Healthly Behaviors Screening Tobacco Screening Tobacco Use from ED Docu: Current Daily Use Daily Tobacco Use Amount/Type: => 5 Cigarettes daily - If tobacco counseling indicated - the following topics are required. - #1 Recognizing dangerous situations. - #2 Coping Skills. - #3 Basic information about quitting. Status of Tobacco Cessation Counseling: #1, #2 AND #3 Completed Cessation Med Status: Nicotine Patch Ordered Alcohol Screening - ETOH screen POS if BAL >=80 or Audit-C>= M4/F3 Audit-C Score from Diag Assess: 12 Blood Alcohol Level: Laboratory Tests 10/03 1300 Toxicology Serum Alcohol (<10 MG/DL) 183.0 Alcohol Use Screening Results: Pos per Audit C &/or BAL - If ETOH counseling indicated - the following topics are required. - #1 Express concern about the patient's - drinking at unhealthy levels, include informing - of national norms for moderate drinking: - men <= 14 drinks/week, max 4 drinks/occasion - women <= 7 drinks/week, max 3 drinks/occasion - #2 Providing feedback, including linking alcohol to - negative physical effects (liver injury, hypertension) - negative emotional effects (relationship problems and - depression) - negative occupational consequences (reduced work - performance) - #3 Advising the patient to abstain from alcohol or - to drink below national norms for moderate drinking - (as listed above). Status of ETOH Use Counseling: #1, #2 AND #3 Completed. Metabolic Screening - Screen if on a Neuroleptic Medication - Metabolic screening should include: - Blood Pressure, BMI, Glucose or Hgb A1c, & a - Lipid profile from within the past 365 days. Metabolic Screening () Not Applicable, patient not on a neuroleptic. OR ([x]) Patient on a neuroleptic(s) . Enter below results for Glucose or Hemoglobin A1C, and lipid panel if obtained during the last 365 days. BMI: 27.200 Blood Pressure: 127/83 Laboratory Results (If applicable): Lab Cholesterol 223 MG/DL H 05/02/16 0933 Cholesterol/HDL Ratio 5 % H 05/02/16 0933 Glucose 135 mg/dL H 10/04/16 1642 HDL Cholesterol 45 mg/dL 05/02/16 0933 Hemoglobin A1c 5.3 % 05/02/16 0933 LDL Cholesterol, Calc 134 mg/dL H 05/02/16 0933 Triglycerides 221 mg/dL H 05/02/16 0933 Exam and Plan Mental Status Examination Ambulation Status: Ambulates independently with steady gait. Appearance: Well-groomed Attitude towards examiner: Calm and cooperative Psychomotor activity: Within normal limits Behavior: Calm and cooperative Quality of speech: Speech is well articulated, goal-directed, average in rate, volume and tone Affect: Congruent Mood: Mildly depressed Suicidal Ideation: Suicidal ideation continues. Patient is able to contract for safety while here. "I don't want to exist." Homicidal Ideation: Denies Hallucinations: Denies Paranoid/Delusional Material: Denies Difficulties with thought organization: No difficulties noted Insight: Fair Judgment: Poor Orientation: Alert and oriented to person, place, time and situation. Cognition: Within normal limits Memory Function: Average Estimate of intellectual functioning: Average Assets/Strengths Patient Identified Assets/Strengths: "I used to be a hard worker. I'm loyal to people." Impression/Plan Impression and Plan: 36-year-old male, well groomed calm and pleasant. Admitted for serious suicidal attempt by overdose on pills. This the patient's third suicidal attempt since age 19. This is his second inpatient admission at [facility]. He reports enjoying and having cravings constantly to drink alcohol, racing thoughts and suicidal ideation. Ativan taper for alcohol withdrawal in progress, which patient appears to be tolerating well. Start Seroquel 25mg TID for racing thoughts, with some prn doses. Consider increasing Seroquel dose as appropriate. Consider adding lithium for suicidal ideation. - Include all active medical diagnosis that require tx DSM 5 Diagnosis(es): Major depression, recurrent, severe. Alcohol use disorder. Rule out mood disorder - Initial Tx Plan for Active Psych & Medical Conditions Treatment Plan: PLAN: The patient will be monitored on the unit for safety, suicidal ideation, depression, mood stability. Additional information is needed from collaterals, including his aunt and uncle. Anticipate once clinically stable, that the patient will be discharged to home and family and be referred to care. - Factors that would help patient function - in a less restrictive setting. Factors: Resolution of suicidal ideation.
--- NOTE | 2016-10-05 16:26 | History & Physical ---
General Information and HPI MD Statement: I have seen and personally examined BRITTNEY BARR and documented this H&P. The patient is a 36 year old M who presented with a patient stated chief complaint of depression/suicidal ideation. Source of Information: patient, old records Exam Limitations: no limitations History of Present Illness: The patient is a 36 yo male with h/o chronic GI symptoms (?irritable bowel), h/o esophageal ulcers (on EGD done by GI in [place], [place]), GERD, depression, insomnia, anorexia presented in the ED with c/o anxiety/depression and suicidal ideation. 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 Was admitted to [facility]. At the time of my exam the patient appeared depressed. Describes some mild/vague epigastric discomfort, otherwise w/o complaints. Has had some nausea relieved by Zofran. Allergies/Medications Allergies: Coded Allergies: No Known Allergies (10/14/15) Home Med list Aripiprazole (Abilify) 10 MG TABLET 1 TAB PO DAILY MENTAL HEALTH (Reported) Dicyclomine Hydrochloride (Bentyl) 10 MG CAPSULE 1 CAP PO TID PRN pain Escitalopram Oxalate (Lexapro) 20 MG TABLET 1 TAB PO DAILY MENTAL HEALTH ( Reported) Gabapentin (Neurontin) 600 MG TABLET 1 TAB PO TID ANXIETY (Reported) Melatonin 10 MG TAB.SUBL 1 TAB PO QPM SLEEP (Reported) Ondansetron (Zofran Odt) 4 MG TAB.RAPDIS 1 TAB SL TID PRN nausea Compliance With Home Meds: GOOD Past History Travel History Traveled to [place] past 21 day No Medical History Neurological: NONE EENT: NONE Cardiovascular: NONE Respiratory: NONE Gastrointestinal: irritable bowel syndrome, GERD, ESPOGEAL ULCERS chronic diarrhea of unknown etiology Hepatic: NONE Renal: NONE Musculoskeletal: NONE Psychiatric: depression, SUICIDE ATTEMPT AT 19 Y/O, OVERDOSE Endocrine: NONE Blood Disorders: NONE Cancer(s): NONE 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 FH: liver cancer FATHER CKD (chronic kidney disease) GRANDFATHER FH: stomach cancer Psychosocial History Where do you live? Home Who Do You Live With? Ex-girlfriend Services at Home: None Primary Language: Lao Smoking Status: Current Everyday Smoker (1 PPD) ETOH Use: denies use Functional Ability ADLs Independent: dressing, eating, toileting, bathing. Ambulation: independent IADLs Independent: shopping, housework, finances, food prep, telephone, transportation , medication admin. 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 EENTM: Denies: no symptoms. Cardiovascular: Denies: no symptoms. Respiratory: Denies: no symptoms. GI: Reports: abdominal pain, diarrhea, nausea. Genitourinary: Denies: no symptoms. Musculoskeletal: Denies: no symptoms. Skin: Denies: no symptoms. Neurological/Psychological: Reports: anxiety, depressed. Hematologic/Endocrine: Denies: no symptoms. Immunologic/Allergic: Denies: no symptoms. Exam & Diagnostic Data Last 24 Hrs of Vital Signs/I&O Vital Signs Date Time Temp Pulse Resp B/P Pulse O2 O2 Flow FiO2 Ox Delivery Rate 10/05 1633 81 131/87 10/05 1621 81 131/87 10/05 1214 84 127/83 10/05 1204 84 127/83 10/05 0804 96.5 85 140/72 10/05 0758 96.5 85 140/72 10/05 0611 67 114/74 10/05 0203 58 115/78 10/05 0059 96.7 80 137/85 10/04 1957 98.2 79 18 128/80 98 Room Air Intake & Output 10/05 1600 10/05 0800 10/05 0000 Intake Total Output Total Balance Patient 88.507 kg Weight Physical Exam General Appearance Alert, Oriented X3, Cooperative, No Acute Distress Skin No Rashes, No Breakdown, No Significant Lesion HEENT Atraumatic, PERRLA, EOMI, Mucous Membr. moist/pink Neck Supple, No JVD, No thryomegaly, +2 Carotid Pulse wo Bruit, No LAD Cardiovascular Regular Rate, Normal S1, Normal S2, No Murmurs Lungs Clear to Auscultation, Normal Air Movement Abdomen Normal Bowel Sounds, Soft, No Hepatospenomegaly, No Masses (MINMIAL EPI TEND W/O GUARD/MANSI) Neurological Exam Findings: Normal Gait, Normal Speech, Strength at 5/5 X4 Ext, Normal Tone, Sensation Intact, Cranial Nerves 3-12 NL, Reflexes 2+ Cranial Nerves II through XII: INTACT Extremities No Clubbing, No Cyanosis, No Edema, Normal Pulses, No Tenderness/ Swelling Vascular Normal Pulses, Pulses Symmetrical Last 24 Hrs of Labs/Chucho: Laboratory Tests 10/05/16 0606: Vitamin B12 342, TSH 3.980 Assessment/Plan Assessment: #Depression/Suicidal Attempt- as above, presented in ED post ingestion of Gabapentin/Ambien. Increased depression/anxiety. Plan: Admit to [facility]/Psychiatry. Medication as per psychiatry. #Abdominal Pain- with h/o GERD, esophageal ulcers on EGD, ?irritable bowel syndrome. Has had GI evaluations by Dr. Moscoso and more recently GI in [facility] (he cannot recall name). Was on Pantoprazole bid in past, however not on at present. Notes increased GI/GERD symptoms with stress. Plan: Will restart PPI bid (omeprazole 40 mg bid here as pantoprazole not on formulary). Continue Bentyl tid prn and Zofran prn nausea. As Ranked By This Provider Problem List: 1. Depression with suicidal ideation 2. GERD (gastroesophageal reflux disease) 3. Irritable bowel disease 4. Esophageal ulcer without bleeding Miscellaneous Miscellaneous Documentation Attending Case Discussed With: FARHEEN SALAZAR MD Primary Care Physician: TRE MACHUCA,DAMARIS Patient sees these Specialists NONE HERE Level of Patient Care: [facility] Consults Needed: Consulting Physician: NONE Attending MD Review Statement Attending Statement Attending MD Statement: examined this patient, reviewed EMR data (avail), discussed with nursing, amended to note Attending Assessment/Plan: The patient was seen this afternoon for above physical.
[2016-10-06] VITALS (12 sets, daily range): BP systolic 108–130; BP diastolic 59–78
--- NOTE | 2016-10-06 11:54 | CP SOUTH PROGRESS NOTE PSYCH ---
Psych (Inpt) Progress Note Progress Note Include the following elements, when applicable: Involvement in the active treatment of the patient with behavioral observations of the patient and the patient's response to the treatment. Review of the ongoing treatment process in the context of the treatment plan. Indication of how multi-disciplinary staff members are carrying out the treatment plan. Plans for future interventions and recommendations for revision of the treatment plan. Liaison with other physicians/providers. Progress Note: Notes reviewed, d/w nursing staff. Interviewed patient this morning. Pleasant, cooperative. Says mood is "ok". Only concern is what he describes as "restless legs". On further description he described a constant need to move, which sounds more like akathesia, and he recently started seroquel. Denies having sensation prior. Denies SI/HI. Vitals wnl, no new labs. MSE: slightly disheveld CM ambulating on unit. Cooperative with interview with good EC. No abn movements. Speech wnl. Mood "ok". Affect mildly constricted. TP log/trenton. TC focused on somatic content. Denies SI/HI. Denies AVH. cognition grossly intact. I/J fair. A/P: Does describe what sounds like akathisia. Timing after initiation of seroquel is reasonable. That he is receiving lorazepam which is a secondary treatment for akathisia without benefit is interesting. A lit review suggests that low dose mirtazapine may be beneficial for this side effect for SGAs. Discussed this with Fredi who agrees to trial it tonight. Start 15 mg QHS. R/B/ SEs discussed. If no benefit over weekend then could consider change or d/c of SGA. O/w continue current mgmt.
[2016-10-07] VITALS (7 sets, daily range): BP systolic 114–132; BP diastolic 77–79
--- NOTE | 2016-10-07 13:49 | CP SOUTH PROGRESS NOTE PSYCH ---
Psych (Inpt) Progress Note Progress Note Include the following elements, when applicable: Involvement in the active treatment of the patient with behavioral observations of the patient and the patient's response to the treatment. Review of the ongoing treatment process in the context of the treatment plan. Indication of how multi-disciplinary staff members are carrying out the treatment plan. Plans for future interventions and recommendations for revision of the treatment plan. Liaison with other physicians/providers. Progress Note: Notes reviewed, d/w nursing staff. Interviewed patient this morning. Fredi this morning reports no change in his "restless legs" last evening. He reports mirtazapine did nothing for this. He was quite focused on his Ativan taper, and feels as though he is being tapered too quickly. I reassured him that his vital signs and structured withdrawal assessment suggest that the taper is proceeding at a reasonable rate. We discussed moving his remaining Ativan to bedtime, as he feels as though this was helpful for his "restless legs ". He reports subjective severe distress over recurrent suicidal thoughts. However these were conveyed in a unusually incongruent manner, expressing essentially no distress when recounting these experiences. Vitals stable and wnl. CIWAs 0 and 1. No new labs. MSE: slightly disheveld CM ambulating on unit. Mildly irritable, limited eye contact. No abn movements noted. Speech wnl. Mood "I keep thinking about suicide ". Affect irritable and constricted. TP perseverative. TC focused on somatic content. +SI without intent or plan. Denies AVH. cognition grossly intact. I/J fair. A/P: Fredi seems to be physiologically tolerating his Ativan taper, however seems to be evidencing some difficulty with tolerating nonpharmacological approaches to his subjective negative affect state. Have made available small as needed doses of Seroquel to help him cope for today, and his total usage can be added and converted to a standing dose by the primary team if desired early this week. While he does describe suicidal ideation, he denies any intent or plan to harm himself on the unit. The question of true akathisia however should continue to be investigated. It is common for akathisia to be mislabeled as agitation or irritability, so if this persists for unclear reasons then might consider an alternative treatment such as propranolol.
[2016-10-08] VITALS (9 sets, daily range): BP systolic 118–138; BP diastolic 68–75
--- NOTE | 2016-10-08 15:45 | CP SOUTH PROGRESS NOTE PSYCH ---
Psych (Inpt) Progress Note Progress Note Progress Note: I discussed this patient's progress to date, current mental status, treatment process in the context of the treatment plan, and discharge planning with staff/ team in the daily morning inpatient team meeting. I also met with the patient myself in individual session. SUBJECTIVE: "The racing thoughts are better, but I still need to take the Seroquel prns." OBJECTIVE: Current Medications Sig/Adele Start time Last Medication Dose Route Stop Time Status Admin Dicyclomine HCl 10 MG TID PRN 10/04 2006 AC 10/05 PO 0824 Folic Acid 1 MG DAILY 10/08 1000 AC 10/08 PO 0900 Ibuprofen 400 MG Q4P PRN 10/08 1445 AC PO Lorazepam 0.5 MG ONCE 10/09 0000 AC PO 10/09 0002 Lorazepam 0.5 MG Q6H 10/08 0000 AC 10/08 PO 10/09 1202 1205 Lorazepam 0.5 MG ONCE ONE 10/07 1800 DC 10/07 PO 10/07 1801 1759 Lorazepam 2 MG Q2P PRN 10/04 1215 AC PO Lorazepam 1 MG Q2P PRN 10/04 1215 AC 10/05 PO 2112 Melatonin 10 MG 10/03 2200 AC 10/07 PO 2138 Mirtazapine 15 MG AT BEDTIME 10/06 2200 DC 10/07 PO 2137 Multivitamins 1 TAB DAILY 10/08 1000 AC 10/08 PO 0901 Nicotine 14 MG DAILY 10/05 1000 AC 10/08 TOP 0901 Nicotine 2 MG Q2P PRN 10/04 2014 AC 10/07 PO 1733 Omeprazole 40 MG BID 10/05 2200 AC 10/08 PO 0900 Ondansetron HCl 4 MG Q8P PRN 10/04 2014 AC 10/05 PO 0918 Propranolol HCl 20 MG AT BEDTIME 10/08 2200 AC PO Quetiapine Fumarate 50 MG 0800,1300 10/09 0800 UNVr PO Quetiapine Fumarate 100 MG AT BEDTIME 10/08 2200 UNVr PO Quetiapine Fumarate 25 MG Q4 HRS NEEDED PRN 10/06 1600 AC 10/08 PO 1425 Quetiapine Fumarate 25 MG 0800,1300,2200 10/05 1700 DC 10/08 PO 1206 Thiamine HCl 100 MG DAILY 10/08 1000 AC 10/08 PO 0901 Vital Signs Date Time Temp Pulse Resp B/P Pulse O2 O2 Flow FiO2 Ox Delivery Rate 10/08 1203 92 118/72 10/08 1202 92 118/72 10/08 0803 96.8 87 138/69 10/08 0756 96.8 87 138/69 10/08 0753 96.8 87 138/69 10/07 1932 98.0 99 123/79 10/07 1603 98 114/78 10/07 1541 98 114 ASSESSMENT: Patient reports improvement with racing thoughts, requesting additional Seroquel. Tolerating Ativan/EtOH taper protocol well. "Restless legs" at bedtime continue, no relief from Remeron. Patient agrees to try propranolol tonight for what he describes as restless legs, which may be akathisia. Denies symptoms of akathisia during the day. Depression:0/10; Anxiety:0/10 (with 10 the worst.) Denies suicidal ideation, homicidal ideation, auditory hallucinations, visual hallucinations, paranoid ideation. Patient states that he has no suicidal ideation at this time. Stated that over the weekend he was "getting a little edgy", and had some passive suicidal thoughts at that time. Otherwise states that he feels safe and is able to contract for safety. Speech is well articulated, goal-directed, average in rate, volume and tone. The patient understands the risks/benefits/side effects of the medication and is agreeable to continue taking them. PLAN: Discontinue mirtazapine for restless legs, as it has not proved efficacious. Start propranolol at bedtime for restless leg/akathisia. Increase Seroquel dose to 50 mg in the morning and afternoon, 100 mg at bedtime for racing thoughts. Continue with other current management as patient is improving. Continue to provide support and encouragement.
[2016-10-09] VITALS (8 sets, daily range): BP systolic 125–141; BP diastolic 66–86
--- NOTE | 2016-10-09 01:05 | Event Note ---
Event Note Event Note: Around 9.15 pm, patient complained of left sided sharp chest pain under the left nipple, non radiating which lasted for about 45 mins, associated with some dizziness. No nausea, diaphoresis or palpitations. RN informed me at 10 pm. We did an EKG which was sinus rhythm without any acute changes, and troponin was negative. We gave a dose of GI cocktail and his symptoms had resolved even prior to receiving the cocktail. Patient feels well, will continue to monitor.
--- NOTE | 2016-10-09 12:58 | CP SOUTH PROGRESS NOTE PSYCH ---
Psych (Inpt) Progress Note Progress Note Progress Note: I discussed this patient's progress to date, current mental status, treatment process in the context of the treatment plan, and discharge planning with staff/ team in the daily morning inpatient team meeting. I also met with the patient myself in individual session. SUBJECTIVE: "The propranolol helped a little with the restless legs last night. " OBJECTIVE: Current Medications Sig/Adele Start time Last Medication Dose Route Stop Time Status Admin Dicyclomine HCl 10 MG TID PRN 10/04 2006 AC 10/05 PO 0824 Folic Acid 1 MG DAILY 10/08 1000 AC 10/09 PO 0900 Ibuprofen 400 MG Q4P PRN 10/08 1445 AC 10/08 PO 1547 Lorazepam 0.5 MG ONCE 10/09 0000 DC PO 10/09 0002 Lorazepam 0.5 MG Q6H 10/08 0000 DC 10/09 PO 10/09 1202 1102 Lorazepam 2 MG Q2P PRN 10/04 1215 AC PO Lorazepam 1 MG Q2P PRN 10/04 1215 AC 10/05 PO 2112 Melatonin 10 MG .STK-MED ONE 10/08 2221 DC PO 10/08 222 Melatonin 10 MG 10/03 AC 10/08 PO 2227 Mirtazapine 15 MG AT BEDTIME 10/06 220 DC 10/07 PO 2137 Multivitamins 1 TAB DAILY 10/08 1000 AC 10/09 PO 0900 Nicotine 14 MG DAILY 10/05 1000 AC 10/09 TOP 0900 Nicotine 2 MG Q2P PRN 10/04 2014 AC 10/09 PO 1102 Omeprazole 40 MG BID 10/05 220 AC 10/09 PO 0900 Ondansetron HCl 4 MG Q8P PRN 10/04 2014 AC 10/05 PO 0918 Propranolol HCl 30 MG AT BEDTIME 10/09 220 UNVr PO Propranolol HCl 20 MG AT BEDTIME 10/08 220 DC 10/08 PO 222 Quetiapine Fumarate 50 MG 0800,1300 10/09 0800 AC 10/09 PO 1230 Quetiapine Fumarate 100 MG AT BEDTIME 10/08 220 AC 10/08 PO 222 Quetiapine Fumarate 25 MG Q4 HRS NEEDED PRN 10/06 1600 AC 10/08 PO 1842 Quetiapine Fumarate 25 MG 0800,1300,2200 10/05 1700 DC 10/08 PO 1206 Thiamine HCl 100 MG DAILY 10/08 1000 AC 10/09 PO 0900 Laboratory Tests 10/080 Chemistry Troponin I (<0.11 ng/ml) < 0.01 Vital Signs Date Time Temp Pulse Resp B/P Pulse O2 O2 Flow FiO2 Ox Delivery Rate 10/09 1238 83 125/66 10/09 1212 83 125/66 10/09 0803 96.3 75 125/66 10/09 0801 96.4 75 125/66 10/08 2226 87 127/75 10/08 1952 97.1 87 127/75 10/08 1948 97.1 87 127/75 10/08 1609 96 126/68 10/08 1556 96 126 ASSESSMENT: Patient reports doing well, he had a better night sleep last night after taking propranolol 20 mg at bedtime. States that it somewhat helped with restless legs, but not entirely. He also had an incident last night when he complained of chest pain, he was seen by house staff, an EKG and troponin were performed. This morning patient states that Chest pain has completely resolved. Denies shortness of breath, nausea and diaphoresis. States he feels that the racing thoughts are better, after having an increase in Seroquel yesterday. Depression:0/10; Anxiety:0/10 (with 10 the worst.) Denies suicidal ideation, homicidal ideation, auditory hallucinations, visual hallucinations, paranoid ideation. Speech is well articulated, goal-directed, average in rate, volume and tone. Calm, cooperative and pleasant. Alert and oriented 3. Logical. States his appetite is very good, reports elevated appetite since starting Seroquel. We spoke about the risks, benefits and side effects of Seroquel including weight gain and metabolic problems. Patient verbalized understanding, and stated that once home he would be able to control his eating better, and would exercise for weight control. The patient understands the risks/benefits/side effects of the medication and is agreeable to continue taking them. PLAN: Anticipate discharge tomorrow. Family meeting with his uncle tomorrow. Patient will attend [facility]. Continue with current management as patient is improving. Continue to provide support and encouragement.
--- NOTE | 2016-10-09 17:33 | SOCIAL WORKER PROG NOTE PSYCH ---
Social Work Progress Note Progress Note Patient seen individually to assess progress, and foralize discharge plans. 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 Patient states that he and uncle are not close, and that, aside from uncle being a major alcoholic, he has major motivation to get him back to work regardless of his needs. Patient does feel that he is nearly set for discharge. Patient wamts to go to evening [facility]. He had had intake last year and he did not follow through as the plan changed and he wound up going to [facility], but that did not work out due to the logistics, and the parents illnesses which inhibited transpotation. Patient states he is motivated, and needs the job, despite not liking it very much, as it is not high paying. Patient has considerable debt, and facing foreclosure on his home. Patient has intake for [facility] tomorrow, and plan is ready for discharge
[2016-10-10 08:02] VITALS: BP 117/83
[2016-10-10 08:04] VITALS: BP 117/83
--- NOTE | 2016-10-10 10:21 | SOCIAL WORKER PROG NOTE PSYCH ---
Social Work Progress Note Progress Note Pt denies si/hi/ah/vh. Pt feels hopeful and motivated for IOP level of care. He reports he lives very close and will plan to work during the day, and take his dog out after work, and head to [facility]. His appointment is with [facility] today at 12:45pm, he agrees to attend this appointment.
[2016-10-10] MEDS ORDERED: PROPRANOLOL HCL10 M1 PO (10:40)
[2016-10-10] MEDS ORDERED: SEROQUEL50 M1 PO (10:41)
[2016-10-10] MEDS ORDERED: NICORELIEF2 MG PO (10:45)
--- NOTE | 2016-10-10 10:46 | CP SOUTH PROGRESS NOTE PSYCH ---
Psych (Inpt) Progress Note Progress Note This note was opened in error. in counseling and/or coordination of care. SUBJECTIVE: OBJECTIVE: Current Medications Sig/Adele Start time Last Medication Dose Route Stop Time Status Admin Dicyclomine HCl 10 MG TID PRN 10/04 2006 AC 10/05 PO 0824 Folic Acid 1 MG DAILY 10/08 1000 AC 10/10 PO 0747 Ibuprofen 400 MG Q4P PRN 10/08 1445 AC 10/08 PO 1547 Lorazepam 0.5 MG Q6H 10/08 0000 DC 10/09 PO 10/09 1202 1102 Lorazepam 2 MG Q2P PRN 10/04 1215 AC PO Lorazepam 1 MG Q2P PRN 10/04 1215 AC 10/09 PO 2019 Melatonin 10 MG .STK-MED ONE 10/09 2030 DC PO 10/09 2031 Melatonin 10 MG 0 10/03 2199 AC 10/09 PO 212 Multivitamins 1 TAB DAILY 10/08 1000 AC 10/10 PO 0748 Nicotine 14 MG DAILY 10/05 1000 AC 10/10 TOP 0747 Nicotine 2 MG Q2P PRN 10/04 2014 AC 10/09 PO 1102 Omeprazole 40 MG BID 10/05 2200 AC 10/10 PO 0748 Ondansetron HCl 4 MG Q8P PRN 10/04 2014 AC 10/05 PO 0918 Propranolol HCl 30 MG AT BEDTIME 10/09 220 AC 10/09 PO 2124 Propranolol HCl 20 MG AT BEDTIME 10/08 220 DC 10/08 PO 2226 Quetiapine Fumarate 50 MG 0800,1300 10/09 0800 AC 10/10 PO 0747 Quetiapine Fumarate 100 MG AT BEDTIME 10/08 2200 AC 10/09 PO 2123 Quetiapine Fumarate 25 MG Q4 HRS NEEDED PRN 10/06 1600 AC 10/09 PO 1738 Thiamine HCl 100 MG DAILY 10/08 1000 AC 10/10 PO 0748 Vital Signs Date Time Temp Pulse Resp B/P Pulse O2 O2 Flow FiO2 Ox Delivery Rate 10/10 0804 76 117/83 10/10 0802 97.1 76 117/83 10/09 2123 97.3 97 16 129/86 10/09 2101 97 10/09 1999 97.3 100 16 129/86 10/09 195 97.3 100 129/86 10/09 1556 91 141/80 10/09 1539 91 141/80 10/09 1238 83 125/66 10/09 1212 83 125/ ASSESSMENT: Depression:[default value]/10; Anxiety:[default value]/10 (with 10 the worst.) [default value] suicidal ideation, homicidal ideation, auditory hallucinations, visual hallucinations, paranoid ideation. Speech is well articulated, goal-directed, average in rate, volume and tone. The patient understands the risks/benefits/side effects of the medication and is agreeable to continue taking them. PLAN: Continue with current management as patient is improving. Continue to provide support and encouragement.
--- NOTE | 2016-10-10 10:53 | DISCHARGE SUMMARY REPORT-PSYCH ---
Visit Information Visit Dates/Diagnosis' Admission Date: 10/04/16 Discharge Date: 10/10/16 Reason for Admission: Presented to the ER after an intentional overdose with 2 tablets of Ambien and 90 tablets of Neurontin 300 mg and "a lot of whiskey." Psy Discharge Primary Diag: Major Depressive D/O, recurrent, severe. Psy Discharge Secondary Diag: Alcohol use d/o, severe; GERD Hospital Course Significant Lab Findings: Lab TSH 3.980 uIU/mL 10/05/16 0606 Troponin I < 0.01 ng/ml 10/08/16 2120 Serum Alcohol 183.0 MG/DL 10/03/16 1300 Course Complications: On the evening of October 08, 2016, patient reported chest pain. He was seen by house staff, an EKG was performed and troponin level was drawn. The next morning patient stated that chest pain had completely resolved. Denied shortness of breath, nausea and diaphoresis. Please refer to Dr. Meraz's note for additional information. Consultations: Patient was seen for admission history and physical by Dr. Early. Please refer to his note for additional information. Allergies: Coded Allergies: No Known Allergies (10/14/15) Hospital Course/TX Response: The patient was monitored on the unit for safety, depression, "racing thoughts", mood lability, and suicidal ideation. He participated in multimodal treatments on the unit. He was medicated with Seroquel for clear thoughts and mood lability, propranolol at bedtime for restless legs vs. akathisia, and melatonin at bedtime for sleep. He tolerated these medications well, to good effect. A family meeting was not held, as the patient declined to invite friends or family. Today, the day of discharge, he reports that he feels safe and ready for discharge home. Tolerating his medications well, to good effect. States that the Zyprexa is helping for his racing thoughts. Reports that propranolol 30 mg taken at bedtime last night alleviated his "restless legs", and he had a good night sleep last night. States that he believes that his most recent overdose attempt was caused by confusion after taking Ambien, which a friend had given him for insomnia. States that after taking the Ambien "I lost it." Depression:0/10; Anxiety:4/10 (with 10 the worst.) Denies suicidal ideation, homicidal ideation, auditory hallucinations, visual hallucinations, paranoid ideation. Patient states and also believes that he will not kill himself. Reports sleeping well last night, his appetite is good, states he is eating "too much." Speech is well articulated, goal-directed, average in rate, volume and tone. Calm, cooperative, pleasant and logical. Alert and oriented 3. The patient understands the risks/benefits/side effects of the medication and is agreeable to continue taking them. Patient reports tolerating his medications well, without complaint. States he feels safe and ready for discharge. Discharge HBIPS - Tobacco Use Treatment Offered Post DC Medications Offered: Script Given-See Med List Post DC Tobacco Treatment Plan: [facility] Program Appt Date: 10/24/16 Program Appt Time: 1600 - EtOH/Drug Use D/O Treatment Offered Post DC Medications Offered: Ref Med EtOH/Drug Use D/O Post DC EtOH/SubAbuse TX Plan: [facility] SubAbuse/Dual IOP Program Appt Date: 10/10/16 Program Appt Time: 1245 Metabolic Screening - Screen if on a Neuroleptic Medication - Metabolic screening should include: - Blood Pressure, BMI, Glucose or Hgb A1c, & a - Lipid profile from within the past 365 days. Metabolic Screening () Not Applicable, patient not on a neuroleptic. OR ([x]) Patient on a neuroleptic(s) . Enter below results for Glucose or Hemoglobin A1C, and lipid panel if obtained during the last 365 days. BMI: 27.200 Blood Pressure: 126/73 Laboratory Results (If applicable): Lab Cholesterol 223 MG/DL H 05/02/16932 Cholesterol/HDL Ratio 5 % H 05/02/16932 HDL Cholesterol 45 mg/dL 05/02/16932 Hemoglobin A1c 5.3 % 05/02/16932 LDL Cholesterol, Calc 134 mg/dL H 05/02/16932 Triglycerides 221 mg/dL H 05/02/16932 Discharge Instructions General Discharge Information Discharge Medications: Discharge Medications- (Dose, route, freq, indication): HOME MEDICATION LIST START taking these NEW Home Medications: Nicotine Dose: ORAL, EVERY 2 HOURS Qty: 30 Call-In to (Nicorelief) 2 MG 2 Milligram NEEDED as needed for Refills: 0 Pharm 1 GUM nicotine craving Last Taken:10/09/16 Time:1102 Propranolol HCl Dose: ORAL, AT BEDTIME for Qty: 42 Call-In to (Propranolol HCl) 10 30 Milligram restless leg/akathesia Refills: 0 Pharm 1 MG TABLET Take 3 tabs at bedtime for akathesia/restless leg. Last Taken:10/09/16 Time:2119 Quetiapine Fumarate Dose: ORAL, THREE TIMES DAILY Qty: 56 Call-In to (Seroquel) 50 MG 50 Milligram for clear thoughts Refills: 0 Pharm 1 TABLET Take one tablet in the morning, one tab in the afternoon, and two tablets in the evening. Last Taken:10/10/16 Time:0800 CONTINUE taking these Home Medications: Melatonin (Melatonin) 10 Dose: ORAL, Every night for MG TAB.SUBL 1 Tablet SLEEP Last Taken:10/09/16 Time:2119 STOP taking these DISCONTINUED Home Medications: Dicyclomine Hydrochloride Dose: ORAL, THREE TIMES DAILY as (Bentyl) 10 MG CAPSULE 1 Capsule needed for pain Reason Stopped: Pt Decision, not taking Gabapentin (Neurontin) 600 MG Dose: ORAL, THREE TIMES DAILY for TABLET 1 Tablet ANXIETY Reason Stopped: Pt Decision, not taking Aripiprazole (Abilify) 10 MG Dose: ORAL, DAILY for MENTAL HEALTH TABLET 1 Tablet Reason Stopped: Per Doctor Decision Escitalopram Oxalate (Lexapro) Dose: ORAL, DAILY for MENTAL HEALTH 20 MG TABLET 1 Tablet Reason Stopped: Per Doctor Decision 1: [id number], [address] [place] [address] Your Preferred Pharmacy [id number] [place] [address] Multiple Neuroleptics: (x) Not Applicable OR Document below three failed attempts at monotherapy, or a plan to taper to monotherapy, or augmentation of Clozapine. () Patient's Diet: Regular Patient's Activity: No restrictions DC Disposition: He is returning to his home, where he lives on his own. Recommendations: Follow-up in [facility]. Maintain sobriety. Medications as directed. Referred To: Provider Referral Service Date: 10/10/16 Referred To: [[facility]] Notes: [address] [place] [address] Intake appointment today, 10/10/2016 at 12:45pm Copies To: Intensive Outpt Psychiatry
--- NOTE | 2016-10-10 11:20 | SOCIAL WORKER PROG NOTE PSYCH ---
Social Work Progress Note Progress Note Completed transfer summery to [facility], Faxed to [facility].
[2016-10-10 12:04] VITALS: BP 126/73
[2016-10-10 12:21] VITALS: BP 126/73
--- NOTE | 2016-10-10 13:19 | CP SOUTH PROGRESS NOTE PSYCH ---
Psych (Inpt) Progress Note Progress Note Progress Note: I discussed this patient's progress to date, current mental status, treatment process in the context of the treatment plan, and discharge planning with staff/ team in the daily morning inpatient team meeting. I also met with the patient myself in individual session. SUBJECTIVE: "I'll be okay. I'm ready to go home." OBJECTIVE: Current Medications Sig/Adele Start time Last Medication Dose Route Stop Time Status Admin Dicyclomine HCl 10 MG TID PRN 10/04 2006 DCD 10/05 PO 0824 Folic Acid 1 MG DAILY 10/08 1000 DCD 10/10 PO 0747 Ibuprofen 400 MG Q4P PRN 10/08 1445 DCD 10/08 PO 1547 Lorazepam 2 MG Q2P PRN 10/04 121 DCD PO Lorazepam 1 MG Q2P PRN 10/04 1215 DCD 10/09 PO 2019 Melatonin 10 MG .STK-MED ONE 10/09 2030 DC PO 10/09 2031 Melatonin 10 MG 10/03 DCD 10/09 PO 212 Multivitamins 1 TAB DAILY 10/08 1000 DCD 10/10 PO 0748 Nicotine 14 MG DAILY 10/05 1000 DCD 10/10 TOP 0747 Nicotine 2 MG Q2P PRN 10/04 2014 DCD 10/09 PO 1102 Omeprazole 40 MG BID 10/05 2199 DCD 10/10 PO 0748 Ondansetron HCl 4 MG Q8P PRN 10/04 2014 DCD 10/05 PO 0918 Propranolol HCl 30 MG AT BEDTIME 10/09 2199 DCD 10/09 PO 2124 Quetiapine Fumarate 50 MG 0800,1300 10/09 0800 DCD 10/10 PO 1228 Quetiapine Fumarate 100 MG AT BEDTIME 10/08 2199 DCD 10/09 PO 2123 Quetiapine Fumarate 25 MG Q4 HRS NEEDED PRN 10/06 1600 DCD 10/09 PO 1738 Thiamine HCl 100 MG DAILY 10/08 1000 DCD 10/10 PO 0748 Vital Signs Date Time Temp Pulse Resp B/P Pulse O2 O2 Flow FiO2 Ox Delivery Rate 10/10 1221 77 126/73 10/10 1204 77 126/73 10/10 0804 76 117/83 10/10 0802 97.1 76 117/83 10/09 2124 97.3 97 16 129/86 10/09 2100 97 10/09 1999 97.3 100 16 129/86 10/09 1954 97.3 100 129/86 10/09 1556 91 141/80 10/09 1539 91 14180 ASSESSMENT: Patient reports he feels safe and ready for discharge home. Tolerating his medications well, to good effect. States that the Zyprexa is helping for his racing thoughts. Reports that propranolol 30 mg taken at bedtime last night alleviated his "restless legs", and he had a good night sleep last night. States that he believes that his most recent overdose attempt was caused by confusion after taking Ambien, which a friend had given him for insomnia. States after taking the Ambien "I lost it." Depression:0/10; Anxiety:4/10 (with 10 the worst.) Denies suicidal ideation, homicidal ideation, auditory hallucinations, visual hallucinations, paranoid ideation. He should states and also believes that he will not kill himself. Reports sleeping well last night, his appetite is good, states he is eating "too much." Speech is well articulated, goal-directed, average in rate, volume and tone. Calm, cooperative, pleasant and logical. Alert and oriented 3. The patient understands the risks/benefits/side effects of the medication and is agreeable to continue taking them. PLAN: Discharge today to IOP intake. Continue with current management as patient is improving. Continue to provide support and encouragement.
== END 2016-10-10 12:52 | DRG 751 ==
LOC: ERH 12:22 → ERHI 10-04 20:03 → ENPENDDIS 10-04 20:03 → CP SOUTH 10-04 20:03 → EDBEDREQSVC 10-04 21:32 → CP SOUTH 10-04 21:47
PROVIDERS: Emergency Medicine; ADMIT Psychiatry & Neurology Addiction Medicine
DX: F33.2 Major depressive disorder, recurrent severe without psychotic features (principal); F10.20 Alcohol dependence, uncomplicated; K21.9 Gastro-esophageal reflux disease without esophagitis
CPT/HCPCS: 36415; 80307; 93005; 93010; G0463; G0480; J3101; J3490